=== PATIENT | female | born 1950 | race Caucasian/White ===

== ENCOUNTER 2018-11-29 15:46 | Outpatient (CLI) | payer MEDICARE, BC ==
[~2018-11-29 15:46] MED LIST: ASPI81TA45 PO; ATOR20TA37 PO; CELE200C PO; LEVO137T3 PO; LISI1TAB3 PO; METO25TA35 PO; RIVA10TA2 PO; RIVA20TA PO; TAMS-11 PO; TRAM300T26 PO
== END 2018-11-29 23:59 | disposition home or self-care (01) ==
LOC: CVU 15:46
PROVIDERS: ATTEND Physician Assistant
DX: I07.1 Rheumatic tricuspid insufficiency (principal); I11.9 Hypertensive heart disease without heart failure
CPT/HCPCS: 93306

== ENCOUNTER 2019-02-10 12:50 | Outpatient (CLI) | payer MEDICARE, BC | END 2019-02-10 23:59 | disposition home or self-care (01) | LOC: CARD 12:50 | PROVIDERS: ATTEND Internal Medicine Cardiovascular Disease | DX: R06.02 Shortness of breath (principal); F17.210 Nicotine dependence, cigarettes, uncomplicated | CPT/HCPCS: 94060; 94726; 94729 ==